=== PATIENT | male | born 1970 | race Caucasian/White ===

== ENCOUNTER 2024-08-04 23:51 | Inpatient (IN) | payer SELFPAY ==
[2024-08-05 01:03] VITALS: BMI 33.4
[2024-08-05] MEDS: traZODone HCL 50 MG TABLET PO ×2 (01:57→21:40)
[2024-08-05] MEDS: LORazepam 1 MG TABLET PO ×4 (01:57→16:06)
--- NOTE | 2024-08-05 04:47 | PC.ADMIT ---
Joe was admitted on a CV after being transferred form [facility] in [place] for ETOH abuse and suicidal ideation. He is alert and oriented X'4, calm and cooperative. he states that he has been drinking a 30 pack of beer daily for the past 13 months after a long period of sobriety. Joe denies suicidal ideation saying that it was just a stupid thing that I said when I was drunk I have no intention of hurting myself. I have too much to live for, I have friends, family and my son. He endorses depression and states that it is situational r/t him recently loosing his job and ongoing ETOH abuse. Joe was tearful when he learned he was being admitted to a psychiatric unit, stating My son was on a psych unit once, he tried to kill himself. Patient was placed on a CIWA for ETOH withdrawal and received 1mg of Ativan upon completion of admission assessment. he declined a flu shot completed all admission paperwork but requested to sign documents in the morning. Hospitalist consultation called in, addictions medicine consultation generated
[2024-08-05 08:00] VITALS: BP 195/115; PULSE 106; RESP 16; TEMP 36.4; O2SAT 99
[2024-08-05 08:27] VITALS: BP 195/115
[2024-08-05] MEDS: amLODIPine Besylate 10 MG TABLET PO (08:27)
[2024-08-05 10:20] LABS: Alanine Aminotransferase 90 U/L (0-40); Albumin Level 4.3 g/dL (3.5-5.0); Alkaline Phosphatase 54 U/L (39-117); Anion Gap 15 (12-20); Aspartate Amino Transferase 80 U/L (5-37); Bilirubin Total 1.1 mg/dL (0.0-1.0); Blood Urea Nitrogen 7 mg/dL (9-16); Calcium 9.5 mg/dL (8.4-10.2); Carbon Dioxide 26 mmol/L (22-29); Chloride 95 mmol/L (96-108); Creatinine Clr Calc Pharmacy 109.2; Estimated Glomerular Filt Rate > 60; Glucose Random 165 mg/dL (60-115); Sodium 132 mmol/L (135-145); Total Protein 8.5 g/dL (6.5-8.0)
--- NOTE | 2024-08-05 10:35 | P.HPPS_ITS ---
HPI Date of Service: 08/05/24 Chief Complaint: Unspec. anxiety disorder, unspec. alcohol related Sources of Information: patient interviewed, chart reviewed and crisis/core team assessment reviewed HPI Subjective Notes: [place] Warning and Conditional Voluntary Healthcare Proxy: No Guardianship: No Medical Problems Affecting Mental Status: No Narrative: 54 yo male, transfer from [place] requesting assist with anxiety mgt and alcohol detox. BAL 360, reports 30 [place] Light Beers daily. Drinking to manage anxiety. Reports sobriety for ~ 6 months in 2022. Lost his job in May 2023 and started using again. Pt reports he was able to stop in November 2022- my body felt terrible, I love life, I have kids, friends and I was able to do this. In 2023 when pt lost the job anxiety increased, financial stress increased and he returned to alcohol to forget his problems. Also reports he stopped his anxiety medication that worked very well and would like to re-start. Interested in Naltrexone as well. Past Psychiatric History: IP:First OP:None currently Trials: Escitalopram Medical Evaluation Reviewed: Hospitalist Flo Pending [facility] Medical History (Updated 08/05/24 @ 15:44 by Alisia Ochoa, LANDON) Anxiety Alcohol use disorder HTN (hypertension) Family History: alcoholism Substance History: alcohol-relapse May 2023 Trauma History: Affirms Diagnostics Vital Signs (24Hr): Vital Signs - 24 hr 08/05/24 08:00 08/05/24 08:27 Temperature 97.5 F Pulse Rate 106 H Respiratory Rate 16 Blood Pressure 195/115 H 195/115 H Pulse Oximetry 99 BMI result Body Mass Index 33.4 Labs 08/05/24 09:11 Labs: Laboratory Results - last 48 hr 08/05/24 09:11 Sodium 132 L Potassium 4.0 Chloride 95 L Carbon Dioxide 26 Anion Gap 15 BUN 7 L Creatinine 0.83 Estim Creat Clear Calc 109.2 Estimated GFR > 60 Random Glucose 165 H Calcium 9.5 Total Bilirubin 1.1 H AST 80 H ALT 90 H Alkaline Phosphatase 54 Total Protein 8.5 H Albumin 4.3 Meds/Allergies Meds Home Medications ?Medication ?Instructions ?Recorded ?Confirmed ?Type No Known Home Meds 08/05/24 08/05/24 History Allergies Allergies Allergy/AdvReac Type Severity Reaction Status Date / Time No Known Allergies Allergy Verified 02/14/25 00:59 Mental Status Exam Mental Status Exam Patient Appearance: Appropriate Patient Orientation: Person, Place, Time and Situation Level of Consciousness: Alert Patient Behavior: Talkative, Cooperative and Good Eye Contact Mood Description: Depressed Affect Description: Flat Patient Cognition Impaired: No Ability to Follow Directions: Good Speech Pattern: Spontaneous Speech Memory Description: Intact Hallucinations: None Thought Process: Rumination Thought Content: positive for Perseveration Depressive Symptoms: Increased Anxiety and Thoughts of /Suicide (denies) Judgement: Fair Assessment & Plan Assessment & Plan (1) Alcohol use disorder: Status: Acute Code(s): F10.90 - Alcohol use, unspecified, uncomplicated (2) Anxiety: Status: Acute Code(s): F41.9 - Anxiety disorder, unspecified (3) HTN (hypertension): Status: Acute Code(s): I10 - Essential (primary) hypertension Plan Alcohol Use Disorder, Anxiety Admit, CV, 15 minute checks Collateral contacts Diagnostics as needed Escitalopram 10 mg daily Naltrexone 25 mg daily MVI, Thiamine, Folic Acid, Mg Addiction Medicine Consult Repeat NA 08/06. Patient educated on: medication risk/benefits, substance abuse and therapeutic strategies Reason for continued inpatient stay Substantial Risk for: rapid decompensation and med/psych decompensation Statement Statement: I have reviewed the history and physical and performed a pertinent examination on my patient. No changes have occurred unless specified. If the History and Physical was not performed prior to admission, the Hospitalist's service will be consulted for completing the admission physical. Time Spent With Patient Time: Total time managing care of this patient today ____ minutes.
[2024-08-05] MEDS: Escitalopram Oxalate 10 MG TABLET PO (12:55)
--- NOTE | 2024-08-05 14:57 | P.CONHOSP_ITS ---
History of Present Illness Data of Consult Service Date: 08/05/24 Primary Care Provider: Unknown Physician HPI A 54-year-old male with a history of hypertension, currently managed with Norvasc, and alcohol dependency (consuming a 30-pack of beer daily and acknowledging a problem) was admitted for depression. He reportedly made a suicidal statement, although he states he was intoxicated at the time and has no intention of harming himself. 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 He currently denies suicidal ideation but reports feeling depressed lately and has no interest in doing things. He has no acute medical complaints such as chest pain, shortness of breath, dizziness, or others. His blood pressure was recorded as high this morning, but the nurse reports it was repeated and is now within normal limits, as documented in the EMR. Review of Systems 2 Review of Systems: Gen: no fever Resp: no sob, no cough CV: no chest, no BOX, no leg edema GI: No n/v, no abd pain Neuro: No confusion [facility] Medical History (Updated 08/05/24 @ 15:38 by Dennis Hayes MD) HTN (hypertension) Social History Household Members: Family Housing: Apartment Do you presently have visiting nurse or other home services: No Patient Tobacco Use Status: Never used Tobacco Use of substances other than those prescribed or required for medical reasons: No Have you been hit, kicked, punched, or otherwise hurt by someone within the past year? If so, by whom?: No Do you feel safe in your current relationship?: No Current Relationship Is there a partner from a previous relationship who is making you feel unsafe now?: No Are you made to feel afraid or neglected: No Advance Directives: No Advance Directives Information Provided: Yes Recently lost weight without trying: No Nutrition Risks: No Nutritional Risk Poor oral hygiene: No Meds Allergies Allergy/AdvReac Type Severity Reaction Status Date / Time No Known Allergies Allergy Verified 08/05/24 00:59 Active Medications: Current Medications Acetaminophen (Acetaminophen 325 Mg Tablet) 650 mg PO Q6H PRN PRN Reason: Headache/Pain, Scale 1-10 Al Hydroxide/Mg Hydroxide (Magnesium Hydrox/Alum Hydrox 30 Ml Oral.Susp) 30 ml PO Q6H PRN PRN Reason: Heartburn/Nausea Amlodipine Besylate (Amlodipine Besylate 10 Mg Tablet) 10 mg PO DAILY [facility]; Protocol Last Admin: 08/05/24 08:27 Dose: 10 mg Escitalopram Oxalate (Escitalopram Oxalate 10 Mg Tablet) 10 mg PO DAILY [facility] Last Admin: 08/05/24 12:55 Dose: 10 mg Folic Acid (Folic Acid 1 Mg Tablet) 1 mg PO DAILY [facility] Hydroxyzine HCl (Hydroxyzine Hcl 25 Mg Tablet) 25 mg PO Q6H PRN PRN Reason: mild anxiety Lorazepam (Lorazepam 1 Mg Tablet) 1 mg PO Q4H PRN PRN Reason: Alcohol Withdrawal Stop: 08/09/24 01:18 Last Admin: 08/05/24 12:21 Dose: 1 mg Lorazepam (Lorazepam 0.5 Mg Tablet) 0.5 mg PO Q4H PRN PRN Reason: Alcohol Withdrawal Lorazepam (Lorazepam 1 Mg Tablet) 2 mg PO Q4H PRN PRN Reason: Alcohol Withdrawal Magnesium Hydroxide (Milk Of Magnesia 30 Ml Oral.Susp) 30 ml PO DAILY PRN PRN Reason: Constipation Magnesium Oxide (Magnesium Oxide 400 Mg Tablet) 400 mg PO DAILY [facility] Multivitamins/Vitamin C (Multivitamin Tablet) 1 tab PO DAILY [facility] Naltrexone HCl (Naltrexone Hcl 50 Mg Tablet) 25 mg PO DAILY [facility] Nicotine Polacrilex (Nicotine Polacrilex 2 Mg Gum) 4 mg BUCCAL Q2H PRN PRN Reason: Nicotine Cravings Thiamine HCl (Thiamine Hcl 100 Mg Tablet) 100 mg PO DAILY [facility] Trazodone HCl (Trazodone Hcl 50 Mg Tablet) 50 mg PO BEDTIME MRX1 PRN PRN Reason: Insomnia Last Admin: 08/05/24 01:57 Dose: 50 mg Home Medications ?Medication ?Instructions ?Recorded ?Confirmed ?Last Taken ?Type No Known Home Meds 08/05/24 08/05/24 Unknown History Physical Exam 2 Vital Signs and Narrative: Vital Signs: Last Vital Signs Temp 97.5 F 08/05/24 08:00 Pulse 106 H 08/05/24 08:00 Resp 16 08/05/24 08:00 BP 195/115 H 08/05/24 08:27 Pulse Ox 99 08/05/24 08:00 BMI result Body Mass Index 33.4 General: AO X 3, no acute distress Resp: CTA bilateral CVS: S1,S2,RRR GI: +BS, NT, no distention Skin: No rash Neuro: motor grossly intact, CN 2 to 3 normal Psych: appropriate affect Results Labs 08/05/24 09:11 Labs: Laboratory Results - last 24 hr 08/05/24 09:11 Anion Gap 15 Estim Creat Clear Calc 109.2 Estimated GFR > 60 Random Glucose 165 H Calcium 9.5 Total Bilirubin 1.1 H AST 80 H ALT 90 H Alkaline Phosphatase 54 Total Protein 8.5 H Albumin 4.3 Assessment and Plan (1) HTN (hypertension): Status: Acute Plan 54 year old with HTN, alcohol dependency here with depression ? SI, BP high HTN--BP on high possible alcoholw Withdral (AW) contributing recheck BP and consider adding Lisinopril Continue CIWA to prevent AW FA, and thiamine supplement Mild Hyponatremia--likely chronic from chronic alcohol use Hyperglycemia 165, reactive, check A1C Depression ? SI, management per Psych Will Keep an eye on BP and make adjustement if needed
[2024-08-05 15:34] VITALS: BP 155/88
[2024-08-05] MEDS: lisinopriL 10 MG TABLET PO (15:34)
[2024-08-05 20:00] VITALS: BP 153/81; PULSE 96; TEMP 36.8; O2SAT 97
[2024-08-05 21:35] VITALS: BP 132/77; PULSE 92; TEMP 36.7; O2SAT 98
[2024-08-05] MEDS: LORazepam 0.5 MG TABLET PO (21:51)
[2024-08-05 22:00] VITALS: BP 132/83; PULSE 112; TEMP 36.7; O2SAT 98
[2024-08-06] MEDS: traZODone HCL 50 MG TABLET PO ×2 (02:41→21:18)
[2024-08-06] MEDS: hydrOXYzine HCL 25 MG TABLET PO ×2 (05:28→21:18)
[2024-08-06 08:00] VITALS: BP 136/72; PULSE 114; RESP 16; TEMP 36.6; O2SAT 98
[2024-08-06] MEDS: Folic Acid 1 MG TABLET PO (08:55)
[2024-08-06] MEDS: LORazepam 0.5 MG TABLET PO ×2 (08:55→17:36)
[2024-08-06 08:56] VITALS: BP 136/72
[2024-08-06] MEDS: lisinopriL 10 MG TABLET PO (08:56)
[2024-08-06] MEDS: Magnesium Oxide 400 MG TABLET PO (08:56)
[2024-08-06] MEDS: Escitalopram Oxalate 10 MG TABLET PO (08:56)
[2024-08-06] MEDS: Thiamine HCL 100 MG TABLET PO (08:56)
[2024-08-06] MEDS: Multivitamin TABLET 1 TAB PO (08:56)
[2024-08-06 08:57] VITALS: BP 136/72
[2024-08-06] MEDS: amLODIPine Besylate 10 MG TABLET PO (08:57)
[2024-08-06] MEDS: Naltrexone HCl 50 MG TABLET 25 MG PO (08:58)
--- NOTE | 2024-08-06 09:25 | P.PNPSI_ITS ---
Subjective Subjective Date of Service: 08/06/24 Reason For Visit: Unspec. anxiety disorder, unspec. alcohol related Subjective Notes: Conditional Voluntary Healthcare Proxy: No Guardianship: No Medical Problems Affecting Mental Status: No Interim History: Pt seen and reviewed with the team Reviewed detox symptoms and process of detox CIWA 8,0,6, HTN improving, pt reports feeling somewhat improved. Medication Compliance: Yes Side effects from medications: No Attending Groups: Intermittent Review of Systems Acute medical concerns: No Medical Review of Systems: unchanged Review of Systems Review of Systems Reports feeling some improvement Mental Status Exam Mental Status Exam Patient Appearance: Appropriate Patient Orientation: Person, Place, Time and Situation Level of Consciousness: Alert Patient Behavior: Talkative, Cooperative and Good Eye Contact Mood Description: Depressed Affect Description: Flat Patient Cognition Impaired: No Ability to Follow Directions: Good Speech Pattern: Spontaneous Speech Memory Description: Intact Hallucinations: None Thought Process: Rumination Thought Content: positive for Perseveration Depressive Symptoms: Increased Anxiety and Thoughts of /Suicide (denies) Judgement: Fair Diagnostics Vital Signs (24Hr): Vital Signs - 24 hr 08/05/24 15:34 08/05/24 20:00 08/05/24 21:35 Temperature 98.2 F 98.1 F Pulse Rate 96 92 Blood Pressure 155/88 H 153/81 H 132/77 Pulse Oximetry 97 98 Oxygen Delivery Method Room Air Room Air 08/05/24 22:00 08/06/24 08:56 08/06/24 08:57 Temperature 98.1 F Pulse Rate 112 H Blood Pressure 132/83 136/72 136/72 Pulse Oximetry 98 Oxygen Delivery Method Room Air BMI result Body Mass Index 33.4 Labs 08/06/24 08:54 Labs: Laboratory Results - last 48 hr 08/05/24 09:11 Sodium 132 L Potassium 4.0 Chloride 95 L Carbon Dioxide 26 Anion Gap 15 BUN 7 L Creatinine 0.83 Estim Creat Clear Calc 109.2 Estimated GFR > 60 Random Glucose 165 H Calcium 9.5 Total Bilirubin 1.1 H AST 80 H ALT 90 H Alkaline Phosphatase 54 Total Protein 8.5 H Albumin 4.3 Medications Medications Current Medications Acetaminophen (Acetaminophen 325 Mg Tablet) 650 mg PO Q6H PRN PRN Reason: Headache/Pain, Scale 1-10 Al Hydroxide/Mg Hydroxide (Magnesium Hydrox/Alum Hydrox 30 Ml Oral.Susp) 30 ml PO Q6H PRN PRN Reason: Heartburn/Nausea Amlodipine Besylate (Amlodipine Besylate 10 Mg Tablet) 10 mg PO DAILY [facility]; Protocol Last Admin: 08/06/24 08:57 Dose: 10 mg Escitalopram Oxalate (Escitalopram Oxalate 10 Mg Tablet) 10 mg PO DAILY [facility] Last Admin: 08/06/24 08:56 Dose: 10 mg Folic Acid (Folic Acid 1 Mg Tablet) 1 mg PO DAILY [facility] Last Admin: 08/06/24 08:55 Dose: 1 mg Hydroxyzine HCl (Hydroxyzine Hcl 25 Mg Tablet) 25 mg PO Q6H PRN PRN Reason: mild anxiety Last Admin: 08/06/24 05:28 Dose: 25 mg Lisinopril (Lisinopril 10 Mg Tablet) 10 mg PO DAILY [facility]; Protocol Last Admin: 08/06/24 08:56 Dose: 10 mg Lorazepam (Lorazepam 1 Mg Tablet) 1 mg PO Q4H PRN PRN Reason: Alcohol Withdrawal Stop: 08/09/24 01:18 Last Admin: 08/05/24 16:06 Dose: 1 mg Lorazepam (Lorazepam 0.5 Mg Tablet) 0.5 mg PO Q4H PRN PRN Reason: Alcohol Withdrawal Last Admin: 08/06/24 08:55 Dose: 0.5 mg Lorazepam (Lorazepam 1 Mg Tablet) 2 mg PO Q4H PRN PRN Reason: Alcohol Withdrawal Magnesium Hydroxide (Milk Of Magnesia 30 Ml Oral.Susp) 30 ml PO DAILY PRN PRN Reason: Constipation Magnesium Oxide (Magnesium Oxide 400 Mg Tablet) 400 mg PO DAILY [facility] Last Admin: 08/06/24 08:56 Dose: 400 mg Multivitamins/Vitamin C (Multivitamin Tablet) 1 tab PO DAILY [facility] Last Admin: 08/06/24 08:56 Dose: 1 tab Naltrexone HCl (Naltrexone Hcl 50 Mg Tablet) 25 mg PO DAILY [facility] Last Admin: 08/06/24 08:58 Dose: 25 mg Nicotine Polacrilex (Nicotine Polacrilex 2 Mg Gum) 4 mg BUCCAL Q2H PRN PRN Reason: Nicotine Cravings Thiamine HCl (Thiamine Hcl 100 Mg Tablet) 100 mg PO DAILY [facility] Last Admin: 08/06/24 08:56 Dose: 100 mg Trazodone HCl (Trazodone Hcl 50 Mg Tablet) 50 mg PO BEDTIME MRX1 PRN PRN Reason: Insomnia Last Admin: 08/06/24 02:41 Dose: 50 mg Allergies Allergies Allergy/AdvReac Type Severity Reaction Status Date / Time No Known Allergies Allergy Verified 08/05/24 00:59 Assessment & Plan Assessment & Plan (1) Alcohol use disorder: Status: Acute Code(s): F10.90 - Alcohol use, unspecified, uncomplicated (2) Anxiety: Status: Acute Code(s): F41.9 - Anxiety disorder, unspecified (3) HTN (hypertension): Status: Acute Code(s): I10 - Essential (primary) hypertension Plan Alcohol Use Disorder, Anxiety Admit, CV, 15 minute checks Collateral contacts Diagnostics as needed Escitalopram 10 mg daily Naltrexone 25 mg daily MVI, Thiamine, Folic Acid, Mg Addiction Medicine Consult Repeat NA 08/06. 08/06: Sodium 135 Continue current plan Reason for continued inpatient stay Substantial Risk for: rapid decompensation and med/psych decompensation Time Spent With Patient Time: Total time managing care of this patient today ____ minutes.
[2024-08-06 09:36] LABS: Cholesterol 163 mg/dL (<200); HDL Cholesterol 85 mg/dL (>40); LDL Cholesterol Calculated 67 mg/dL (<100); Sodium 135 mmol/L (135-145); Triglycerides 57 mg/dL (<150)
[2024-08-06 20:00] VITALS: BP 148/73; PULSE 93; RESP 18; TEMP 36.4; O2SAT 99
[2024-08-07 00:52] VITALS: BP 167/99; PULSE 110; TEMP 36.5; O2SAT 98
[2024-08-07 08:00] VITALS: BP 141/78; PULSE 111; RESP 20; TEMP 36.5; O2SAT 98
[2024-08-07] MEDS: Multivitamin TABLET 1 TAB PO (08:48)
[2024-08-07] MEDS: Magnesium Oxide 400 MG TABLET PO (08:48)
[2024-08-07] MEDS: amLODIPine Besylate 10 MG TABLET PO (08:48)
[2024-08-07] MEDS: Escitalopram Oxalate 10 MG TABLET PO (08:48)
[2024-08-07] MEDS: hydrOXYzine HCL 25 MG TABLET PO ×3 (08:49→21:30)
[2024-08-07] MEDS: Thiamine HCL 100 MG TABLET PO (08:49)
[2024-08-07] MEDS: Folic Acid 1 MG TABLET PO (08:49)
[2024-08-07] MEDS: Naltrexone HCl 50 MG TABLET 25 MG PO (08:49)
[2024-08-07] MEDS: LORazepam 0.5 MG TABLET PO (08:57)
[2024-08-07] MEDS: lisinopriL 10 MG TABLET PO (08:58)
--- NOTE | 2024-08-07 09:35 | HO.PSYCHPN ---
Subjective Subjective Date of Service: 08/07/24 Reason For Visit: Unspec. anxiety disorder, unspec. alcohol related Subjective Notes: Conditional Voluntary Healthcare Proxy: No Guardianship: No Medical Problems Affecting Mental Status: No Interim History: Pt feeling improved Anxious-team suggested clonidine which he agreed with Avoiding chaotic loud milieu Some depressive sx CIWA max at 7 today Medication Compliance: Yes Side effects from medications: No Attending Groups: Intermittent Review of Systems Acute medical concerns: No Review of Systems Review of Systems anxiety Mental Status Exam Mental Status Exam Patient Appearance: Appropriate Patient Orientation: Person, Place, Time and Situation Level of Consciousness: Alert Patient Behavior: Talkative, Cooperative and Good Eye Contact Mood Description: Depressed Affect Description: Flat Patient Cognition Impaired: No Ability to Follow Directions: Good Speech Pattern: Spontaneous Speech Memory Description: Intact Hallucinations: None Thought Process: Rumination Thought Content: positive for Perseveration Depressive Symptoms: Increased Anxiety and Thoughts of /Suicide (denies) Judgement: Fair Diagnostics Vital Signs (24Hr): Vital Signs - 24 hr 08/06/24 20:00 08/06/24 20:00 08/07/24 00:52 Temperature 97.5 F 97.5 F 97.7 F Pulse Rate 93 93 110 H Respiratory Rate 18 Blood Pressure 148/73 H 148/73 H 167/99 H Pulse Oximetry 99 99 98 Oxygen Delivery Method Room Air Room Air Room Air 08/07/24 08:00 Temperature 97.7 F Pulse Rate 111 H Respiratory Rate 20 Blood Pressure 141/78 H Pulse Oximetry 98 Oxygen Delivery Method Room Air BMI result Body Mass Index 33.4 Labs 08/06/24 08:54 Labs: Laboratory Results - last 48 hr 08/05/24 08/06/24 09:11 08:54 Sodium 132 L 135 Potassium 4.0 Chloride 95 L Carbon Dioxide 26 Anion Gap 15 BUN 7 L Creatinine 0.83 Estim Creat Clear Calc 109.2 Estimated GFR > 60 Random Glucose 165 H Calcium 9.5 Total Bilirubin 1.1 H AST 80 H ALT 90 H Alkaline Phosphatase 54 Total Protein 8.5 H Albumin 4.3 Triglycerides 57 Cholesterol 163 LDL Cholesterol, Calc 67 HDL Cholesterol 85 Medications Medications Current Medications Acetaminophen (Acetaminophen 325 Mg Tablet) 650 mg PO Q6H PRN PRN Reason: Headache/Pain, Scale 1-10 Al Hydroxide/Mg Hydroxide (Magnesium Hydrox/Alum Hydrox 30 Ml Oral.Susp) 30 ml PO Q6H PRN PRN Reason: Heartburn/Nausea Amlodipine Besylate (Amlodipine Besylate 10 Mg Tablet) 10 mg PO DAILY [facility]; Protocol Last Admin: 08/07/24 08:48 Dose: 10 mg Escitalopram Oxalate (Escitalopram Oxalate 10 Mg Tablet) 10 mg PO DAILY [facility] Last Admin: 08/07/24 08:48 Dose: 10 mg Folic Acid (Folic Acid 1 Mg Tablet) 1 mg PO DAILY [facility] Last Admin: 08/07/24 08:49 Dose: 1 mg Hydroxyzine HCl (Hydroxyzine Hcl 25 Mg Tablet) 25 mg PO Q6H PRN PRN Reason: mild anxiety Last Admin: 08/07/24 08:49 Dose: 25 mg Lisinopril (Lisinopril 10 Mg Tablet) 10 mg PO DAILY [facility]; Protocol Last Admin: 08/07/24 08:58 Dose: 10 mg Lorazepam (Lorazepam 1 Mg Tablet) 1 mg PO Q4H PRN PRN Reason: Alcohol Withdrawal Stop: 08/09/24 01:18 Last Admin: 08/05/24 16:06 Dose: 1 mg Lorazepam (Lorazepam 0.5 Mg Tablet) 0.5 mg PO Q4H PRN PRN Reason: Alcohol Withdrawal Last Admin: 08/07/24 08:57 Dose: 0.5 mg Lorazepam (Lorazepam 1 Mg Tablet) 2 mg PO Q4H PRN PRN Reason: Alcohol Withdrawal Magnesium Hydroxide (Milk Of Magnesia 30 Ml Oral.Susp) 30 ml PO DAILY PRN PRN Reason: Constipation Magnesium Oxide (Magnesium Oxide 400 Mg Tablet) 400 mg PO DAILY [facility] Last Admin: 08/07/24 08:48 Dose: 400 mg Multivitamins/Vitamin C (Multivitamin Tablet) 1 tab PO DAILY [facility] Last Admin: 08/07/24 08:48 Dose: 1 tab Naltrexone HCl (Naltrexone Hcl 50 Mg Tablet) 25 mg PO DAILY [facility] Last Admin: 08/07/24 08:49 Dose: 25 mg Nicotine Polacrilex (Nicotine Polacrilex 2 Mg Gum) 4 mg BUCCAL Q2H PRN PRN Reason: Nicotine Cravings Polyethylene Glycol (Polyethylene Glycol 3350 17 Gm Powd.Pack) 17 gm PO DAILY [facility] Thiamine HCl (Thiamine Hcl 100 Mg Tablet) 100 mg PO DAILY [facility] Last Admin: 08/07/24 08:49 Dose: 100 mg Trazodone HCl (Trazodone Hcl 50 Mg Tablet) 50 mg PO BEDTIME MRX1 PRN PRN Reason: Insomnia Last Admin: 08/06/24 21:18 Dose: 50 mg Allergies Allergies Allergy/AdvReac Type Severity Reaction Status Date / Time No Known Allergies Allergy Verified 08/05/24 00:59 Assessment & Plan Assessment & Plan (1) Alcohol use disorder: Status: Acute Code(s): F10.90 - Alcohol use, unspecified, uncomplicated (2) Anxiety: Status: Acute Code(s): F41.9 - Anxiety disorder, unspecified (3) HTN (hypertension): Status: Acute Code(s): I10 - Essential (primary) hypertension Plan Alcohol Use Disorder, Anxiety Admit, CV, 15 minute checks Collateral contacts Diagnostics as needed Escitalopram 10 mg daily Naltrexone 25 mg daily MVI, Thiamine, Folic Acid, Mg Addiction Medicine Consult Repeat NA 08/06. 08/06: Sodium 135 Continue current plan 08/07: Continue tx Reason for continued inpatient stay Substantial Risk for: rapid decompensation Time Spent With Patient Time: Total time managing care of this patient today ____ minutes.
[2024-08-07 12:01] VITALS: BP 137/72; PULSE 94; RESP 18; TEMP 36.4
[2024-08-07 16:45] VITALS: BP 144/79; PULSE 95; RESP 18; TEMP 36.6; O2SAT 98
[2024-08-07 19:34] VITALS: BP 145/75; PULSE 82; TEMP 36.4; O2SAT 97
[2024-08-07] MEDS: traZODone HCL 50 MG TABLET PO (21:30)
[2024-08-08] MEDS: hydrOXYzine HCL 25 MG TABLET PO (06:34)
[2024-08-08 08:00] VITALS: BP 146/78; PULSE 104; RESP 20; TEMP 36.6; O2SAT 96
--- NOTE | 2024-08-08 08:25 | P.PNPSI_ITS ---
Subjective Subjective Date of Service: 08/08/24 Reason For Visit: Unspec. anxiety disorder, unspec. alcohol related Subjective Notes: Conditional Voluntary Healthcare Proxy: No Guardianship: No Medical Problems Affecting Mental Status: No Interim History: LARY stopped Looking to discharge Tells team he is looking forward to living again Does report he believes one of his teeth cracked and will need to follow up with his dental team. Reports feeling improved overall. Review of Systems Review of Systems Yes all other systems are reviewed and are negative Mental Status Exam Mental Status Exam Patient Appearance: Appropriate Patient Orientation: Person, Place, Time and Situation Level of Consciousness: Alert Patient Behavior: Talkative, Cooperative and Good Eye Contact Mood Description: Constricted Affect Description: Flat Patient Cognition Impaired: No Ability to Follow Directions: Good Speech Pattern: Spontaneous Speech Memory Description: Intact Hallucinations: None Thought Process: Rumination Thought Content: positive for Perseveration Depressive Symptoms: Increased Anxiety and Thoughts of /Suicide (denies) Judgement: Fair Diagnostics Vital Signs (24Hr): Vital Signs - 24 hr 08/07/24 12:01 08/07/24 16:45 08/07/24 19:34 Temperature 97.5 F 97.8 F 97.6 F Pulse Rate 94 95 82 Respiratory Rate 18 18 Blood Pressure 137/72 144/79 H 145/75 H Pulse Oximetry 98 97 Oxygen Delivery Method Room Air Room Air 08/08/24 08:00 Temperature 97.8 F Pulse Rate 104 H Respiratory Rate 20 Blood Pressure 146/78 H Pulse Oximetry 96 Oxygen Delivery Method Room Air BMI result Body Mass Index 33.4 Labs 08/06/24 08:54 Labs: Laboratory Results - last 48 hr 08/06/24 08:54 Sodium 135 Triglycerides 57 Cholesterol 163 LDL Cholesterol, Calc 67 HDL Cholesterol 85 Medications Medications Current Medications Acetaminophen (Acetaminophen 325 Mg Tablet) 650 mg PO Q6H PRN PRN Reason: Headache/Pain, Scale 1-10 Al Hydroxide/Mg Hydroxide (Magnesium Hydrox/Alum Hydrox 30 Ml Oral.Susp) 30 ml PO Q6H PRN PRN Reason: Heartburn/Nausea Amlodipine Besylate (Amlodipine Besylate 10 Mg Tablet) 10 mg PO DAILY [facility]; Protocol Last Admin: 08/07/24 08:48 Dose: 10 mg Clonidine HCl (Clonidine Hcl 0.1 Mg Tablet) 0.1 mg PO BID PRN; Protocol PRN Reason: high anxiety Escitalopram Oxalate (Escitalopram Oxalate 10 Mg Tablet) 10 mg PO DAILY [facility] Last Admin: 08/07/24 08:48 Dose: 10 mg Folic Acid (Folic Acid 1 Mg Tablet) 1 mg PO DAILY [facility] Last Admin: 08/07/24 08:49 Dose: 1 mg Hydroxyzine HCl (Hydroxyzine Hcl 25 Mg Tablet) 25 mg PO Q6H PRN PRN Reason: mild anxiety Last Admin: 08/08/24 06:34 Dose: 25 mg Lisinopril (Lisinopril 10 Mg Tablet) 10 mg PO DAILY [facility]; Protocol Last Admin: 08/07/24 08:58 Dose: 10 mg Lorazepam (Lorazepam 1 Mg Tablet) 1 mg PO Q4H PRN PRN Reason: Alcohol Withdrawal Stop: 08/09/24 01:18 Last Admin: 08/05/24 16:06 Dose: 1 mg Lorazepam (Lorazepam 0.5 Mg Tablet) 0.5 mg PO Q4H PRN PRN Reason: Alcohol Withdrawal Last Admin: 08/07/24 08:57 Dose: 0.5 mg Lorazepam (Lorazepam 1 Mg Tablet) 2 mg PO Q4H PRN PRN Reason: Alcohol Withdrawal Magnesium Hydroxide (Milk Of Magnesia 30 Ml Oral.Susp) 30 ml PO DAILY PRN PRN Reason: Constipation Magnesium Oxide (Magnesium Oxide 400 Mg Tablet) 400 mg PO DAILY [facility] Last Admin: 08/07/24 08:48 Dose: 400 mg Multivitamins/Vitamin C (Multivitamin Tablet) 1 tab PO DAILY [facility] Last Admin: 08/07/24 08:48 Dose: 1 tab Naltrexone HCl (Naltrexone Hcl 50 Mg Tablet) 25 mg PO DAILY [facility] Last Admin: 08/07/24 08:49 Dose: 25 mg Nicotine Polacrilex (Nicotine Polacrilex 2 Mg Gum) 4 mg BUCCAL Q2H PRN PRN Reason: Nicotine Cravings Polyethylene Glycol (Polyethylene Glycol 3350 17 Gm Powd.Pack) 17 gm PO DAILY [facility] Thiamine HCl (Thiamine Hcl 100 Mg Tablet) 100 mg PO DAILY [facility] Last Admin: 08/07/24 08:49 Dose: 100 mg Trazodone HCl (Trazodone Hcl 50 Mg Tablet) 50 mg PO BEDTIME MRX1 PRN PRN Reason: Insomnia Last Admin: 08/07/24 21:30 Dose: 50 mg Allergies Allergies Allergy/AdvReac Type Severity Reaction Status Date / Time No Known Allergies Allergy Verified 08/05/24 00:59 Assessment & Plan Assessment & Plan (1) Alcohol use disorder: Status: Acute Code(s): F10.90 - Alcohol use, unspecified, uncomplicated (2) Anxiety: Status: Acute Code(s): F41.9 - Anxiety disorder, unspecified (3) HTN (hypertension): Status: Acute Code(s): I10 - Essential (primary) hypertension Plan Alcohol Use Disorder, Anxiety Admit, CV, 15 minute checks Collateral contacts Diagnostics as needed Escitalopram 10 mg daily Naltrexone 25 mg daily MVI, Thiamine, Folic Acid, Mg Addiction Medicine Consult Repeat NA 08/06. 08/06: Sodium 135 Continue current plan 08/08: Continue tx Reason for continued inpatient stay Substantial Risk for: rapid decompensation Time Spent With Patient Time: Total time managing care of this patient today ____ minutes.
[2024-08-08] MEDS: lisinopriL 10 MG TABLET PO (08:40)
[2024-08-08] MEDS: Magnesium Oxide 400 MG TABLET PO (08:40)
[2024-08-08] MEDS: amLODIPine Besylate 10 MG TABLET PO (08:40)
[2024-08-08] MEDS: Multivitamin TABLET 1 TAB PO (08:40)
[2024-08-08] MEDS: Naltrexone HCl 50 MG TABLET 25 MG PO (08:40)
[2024-08-08] MEDS: Thiamine HCL 100 MG TABLET PO (08:40)
[2024-08-08] MEDS: Folic Acid 1 MG TABLET PO (08:40)
[2024-08-08] MEDS: Escitalopram Oxalate 10 MG TABLET PO (08:40)
[2024-08-08 11:33] VITALS: BP 146/77
[2024-08-08] MEDS: cloNIDine HCL 0.1 MG TABLET PO ×2 (11:33→21:42)
[2024-08-08 20:00] VITALS: BP 145/75; PULSE 96; TEMP 36.6; O2SAT 96
[2024-08-08 21:42] VITALS: BP 145/75
[2024-08-08] MEDS: traZODone HCL 50 MG TABLET PO ×2 (21:42→22:48)
[2024-08-09 08:00] VITALS: BP 114/66; PULSE 110; RESP 18; TEMP 36.4; O2SAT 98
[2024-08-09] MEDS: Naltrexone HCl 50 MG TABLET 25 MG PO (08:19)
[2024-08-09] MEDS: Folic Acid 1 MG TABLET PO (08:19)
[2024-08-09] MEDS: lisinopriL 10 MG TABLET PO (08:19)
[2024-08-09] MEDS: Thiamine HCL 100 MG TABLET PO (08:19)
[2024-08-09] MEDS: Magnesium Oxide 400 MG TABLET PO (08:19)
[2024-08-09] MEDS: amLODIPine Besylate 10 MG TABLET PO (08:19)
[2024-08-09] MEDS: Multivitamin TABLET 1 TAB PO (08:19)
[2024-08-09] MEDS: Escitalopram Oxalate 10 MG TABLET PO (08:20)
--- NOTE | 2024-08-09 09:36 | HO.PSYCHPN ---
Subjective Subjective Date of Service: 08/09/24 Reason For Visit: Unspec. anxiety disorder, unspec. alcohol related Interim History: Met w/ patient; discussed with team; reviewed chart pt reports he's doing fantastic and that it's the best he's felt in a long time. He says i'm in a good place [emotionally] right now... Pt shared aftercare plans for sobriety which involve going to meetings with his son. Pt looking forward to planned discharge tomorrow. Mental Status Exam Mental Status Exam Narrative: Pt is alert and oriented; behavior is cooperative, friendly and calm; patient is not in distress; dressed in casual attire with adequate hygiene; mood is described as fantastic and affect congruent; eye contact appropriate; Speech is normal rate, volume and prosody and not pressured; no psychomotor agitation/retardation present; thought process is organized and goal directed; Thought content is on tx; otherwise pertinent to relevant topics and without any delusional content, paranoid ideations or grandiosity; denies any SI/HI. There is no evidence of perceptual disturbance. Patients insight and judgment appear intact. Diagnostics Vital Signs (24Hr): Vital Signs - 24 hr 08/08/24 11:33 08/08/24 20:00 08/08/24 21:42 Temperature 97.8 F Pulse Rate 96 Respiratory Rate Blood Pressure 146/77 H 145/75 H 145/75 H Pulse Oximetry 96 Oxygen Delivery Method 08/09/24 08:00 Temperature 97.6 F Pulse Rate 110 H Respiratory Rate 18 Blood Pressure 114/66 Pulse Oximetry 98 Oxygen Delivery Method Room Air BMI result Body Mass Index 33.4 Labs 08/06/24 08:54 Medications Medications Current Medications Acetaminophen (Acetaminophen 325 Mg Tablet) 650 mg PO Q6H PRN PRN Reason: Headache/Pain, Scale 1-10 Al Hydroxide/Mg Hydroxide (Magnesium Hydrox/Alum Hydrox 30 Ml Oral.Susp) 30 ml PO Q6H PRN PRN Reason: Heartburn/Nausea Amlodipine Besylate (Amlodipine Besylate 10 Mg Tablet) 10 mg PO DAILY [place]; Protocol Last Admin: 08/09/24 08:19 Dose: 10 mg Clonidine HCl (Clonidine Hcl 0.1 Mg Tablet) 0.1 mg PO BID PRN; Protocol PRN Reason: high anxiety Last Admin: 08/08/24 21:42 Dose: 0.1 mg Escitalopram Oxalate (Escitalopram Oxalate 10 Mg Tablet) 10 mg PO DAILY [facility] Last Admin: 08/09/24 08:20 Dose: 10 mg Folic Acid (Folic Acid 1 Mg Tablet) 1 mg PO DAILY [facility] Last Admin: 08/09/24 08:19 Dose: 1 mg Hydroxyzine HCl (Hydroxyzine Hcl 25 Mg Tablet) 25 mg PO Q6H PRN PRN Reason: mild anxiety Last Admin: 08/08/24 06:34 Dose: 25 mg Lisinopril (Lisinopril 10 Mg Tablet) 10 mg PO DAILY [facility]; Protocol Last Admin: 08/09/24 08:19 Dose: 10 mg Magnesium Hydroxide (Milk Of Magnesia 30 Ml Oral.Susp) 30 ml PO DAILY PRN PRN Reason: Constipation Magnesium Oxide (Magnesium Oxide 400 Mg Tablet) 400 mg PO DAILY [facility] [place] Last Admin: 08/09/24 08:19 Dose: 400 mg Multivitamins/Vitamin C (Multivitamin Tablet) 1 tab PO DAILY [facility] [place] Last Admin: 08/09/24 08:19 Dose: 1 tab Naltrexone HCl (Naltrexone Hcl 50 Mg Tablet) 25 mg PO DAILY [facility] [place] Last Admin: 08/09/24 08:19 Dose: 25 mg Nicotine Polacrilex (Nicotine Polacrilex 2 Mg Gum) 4 mg BUCCAL Q2H PRN PRN Reason: Nicotine Cravings Polyethylene Glycol (Polyethylene Glycol 3350 17 Gm Powd.Pack) 17 gm PO DAILY [facility] [place] Last Admin: 08/09/24 08:41 Dose: Not Given Thiamine HCl (Thiamine Hcl 100 Mg Tablet) 100 mg PO DAILY [facility] Last Admin: 08/09/24 08:19 Dose: 100 mg Trazodone HCl (Trazodone Hcl 50 Mg Tablet) 50 mg PO BEDTIME MRX1 PRN PRN Reason: Insomnia Last Admin: 08/08/24 22:48 Dose: 50 mg Allergies Allergies Allergy/AdvReac Type Severity Reaction Status Date / Time No Known Allergies Allergy Verified 08/05/24 00:59 Assessment & Plan Assessment & Plan (1) Alcohol use disorder: Status: Acute Code(s): F10.90 - Alcohol use, unspecified, uncomplicated (2) Anxiety: Status: Acute Code(s): F41.9 - Anxiety disorder, unspecified (3) HTN (hypertension): Status: Acute Code(s): I10 - Essential (primary) hypertension Plan Alcohol Use Disorder, Anxiety Admit, CV, 15 minute checks Collateral contacts Diagnostics as needed Escitalopram 10 mg daily Naltrexone 25 mg daily MVI, Thiamine, Folic Acid, Mg Addiction Medicine Consult Repeat NA 08/06. 08/06: Sodium 135 Continue current plan 08/08: Continue tx 08/09 continue tx plan and planned discharge tomorrow Patient educated on: diagnosis, medication risk/benefits and substance abuse Informed Consent: understands Reason for continued inpatient stay Substantial Risk for: stable for discharge Time Spent With Patient Time: Total time managing care of this patient today ____ minutes.
[2024-08-09] MEDS: hydrOXYzine HCL 25 MG TABLET PO ×2 (10:09→22:07)
[2024-08-09 19:51] VITALS: BP 128/71; PULSE 81; RESP 18; TEMP 36.4; O2SAT 98
[2024-08-09] MEDS: traZODone HCL 50 MG TABLET PO (23:00)
[2024-08-10 07:56] VITALS: BP 132/83; PULSE 92; RESP 18; TEMP 36.8; O2SAT 99
[2024-08-10] MEDS: lisinopriL 10 MG TABLET PO (08:29)
[2024-08-10] MEDS: Folic Acid 1 MG TABLET PO (08:29)
[2024-08-10] MEDS: Escitalopram Oxalate 10 MG TABLET PO (08:29)
[2024-08-10] MEDS: Magnesium Oxide 400 MG TABLET PO (08:29)
[2024-08-10] MEDS: Multivitamin TABLET 1 TAB PO (08:29)
[2024-08-10] MEDS: Thiamine HCL 100 MG TABLET PO (08:29)
[2024-08-10] MEDS: amLODIPine Besylate 10 MG TABLET PO (08:30)
[2024-08-10] MEDS: Naltrexone HCl 50 MG TABLET 25 MG PO (08:30)
--- NOTE | 2024-08-18 15:47 | PM.PSYDC ---
DS: Providers Provider Date of Service: 08/10/24 Date of admission: 08/04/24 23:51 Date of discharge: 08/10/24 Primary care physician: Unknown Physician Admitting clinician: Alisia Ochoa Attending physician on admission: Jonathan Coleman Consults: 08/05/24 01:16 Consult to Hospitalist Routine Comment: Consulting Provider: [facility] Hospitalists Reason For Exam: Direct admission Attending physician on discharge: Jonathan Coleman Discharging clinician: Alisia Ochoa DS: Diagnosis Discharge Diagnosis (1) Alcohol use disorder: Status: Acute (2) Anxiety: Status: Acute (3) HTN (hypertension): Status: Acute DS: Medications Discharge Medications Home Medications: Previous Rx's ?Medication ?Instructions ?Recorded amlodipine 10 mg tablet 10 mg PO DAILY #3 tabs 08/10/24 clonidine HCl 0.1 mg tablet 0.1 mg PO BID PRN high anxiety #3 08/10/24 tabs escitalopram oxalate 10 mg tablet 10 mg PO DAILY #30 tabs 08/10/24 folic acid 1 mg tablet 1 mg PO DAILY #30 tabs 08/10/24 hydroxyzine HCl 25 mg tablet 25 mg PO Q6H PRN mild anxiety #15 08/10/24 tabs lisinopril 10 mg tablet 10 mg PO DAILY #3 tabs 08/10/24 magnesium oxide 400 mg (241.3 mg 400 mg PO DAILY #30 tabs 08/10/24 magnesium) tablet multivitamin (Daily-Viky tablet) 1 tab PO DAILY #30 tabs 08/10/24 naltrexone 50 mg tablet 25 mg (1/2 x 50 mg) PO DAILY #15 08/10/24 tabs thiamine mononitrate (vit B1) 100 100 mg PO DAILY #30 tabs 08/10/24 mg tablet trazodone 50 mg tablet 50 mg PO BEDTIME MRX1 PRN Insomnia 08/10/24 #60 tabs Mental Status Exam Mental Status Exam Patient Appearance: Appropriate Patient Orientation: Person, Place, Time and Situation Level of Consciousness: Alert Patient Behavior: Talkative, Cooperative and Good Eye Contact Mood Description: Constricted Affect Description: Flat Patient Cognition Impaired: No Ability to Follow Directions: Good Speech Pattern: Spontaneous Speech Memory Description: Intact Hallucinations: None Thought Process: Rumination Thought Content: positive for Perseveration Depressive Symptoms: Increased Anxiety and Thoughts of /Suicide (denies) Judgement: Fair DS: Summary Hospital Course Hospital Course: Admission to adult psychiatry for exacerbation of alcohol use disorder, anxiety. Medications were evaluated and titrated Pt was offered full milieu therapy during his admission. Time Spent with Patient Time attestation: Total time managing care of this patient today ____ minutes. Discharge Plan Discharge Anticipated Discharge Date/Time: 08/10/24 12:00 Patient Disposition: Home, Self-Care Discharge Diagnosis: Alcohol Use Disorder Anxiety HTN [facility] [Other] - 1 Week (Patient may self present for diagnostic evaluation to connect with outpatient mental health (psychiatry and therapy services. Hours for evaluation Thursday-Thursday 10:00am to 12:00pm ) [facility] [Other] - 1 Week (Patient may self present for diagnostic evaluation to establish with psychiatry and therapy providers. Hours of evaluation, Thursday-Thursday 8:00 am- 8:00 pm, Thursday 9:00 am-5:00 pm.) Dakotah Miles MD [Physician] - 1 Week (Office will call pt with follow up appointment .) Discharge Medications: New multivitamin [Daily-Viky] Tablet 1 tab PO DAILY Qty: 30 0RF clonidine HCl 0.1 mg Tablet 0.1 mg PO BID PRN (Reason: high anxiety) Qty: 3 0RF Protocol: Hold for SBP< HOLD for SBP < : 90 trazodone 50 mg Tablet 50 mg PO BEDTIME MRX1 PRN (Reason: Insomnia) Qty: 60 0RF naltrexone 50 mg Tablet 25 mg PO DAILY Qty: 15 0RF magnesium oxide 400 mg (241.3 mg magnesium) Tablet 400 mg PO DAILY Qty: 30 0RF amlodipine 10 mg Tablet 10 mg PO DAILY Qty: 3 0RF Protocol: Hold for SBP< HOLD for SBP < : 90 lisinopril 10 mg Tablet 10 mg PO DAILY Qty: 3 0RF Protocol: Hold for SBP< HOLD for SBP < : 90 folic acid 1 mg Tablet 1 mg PO DAILY Qty: 30 0RF hydroxyzine HCl 25 mg Tablet 25 mg PO Q6H PRN (Reason: mild anxiety) Qty: 15 0RF escitalopram oxalate 10 mg Tablet 10 mg PO DAILY Qty: 30 0RF thiamine mononitrate (vit B1) 100 mg Tablet 100 mg PO DAILY Qty: 30 0RF Discharge Orders: Discharge Order (Routine); Ordered 08/10/24 Ordered By: Alisia Ochoa Diet: Advance to usual diet Activity on Discharge: As tolerated Stand Alone Forms: Patient Portal Discharge page, Community Support Print Language: [place] Care Plan Goals: Abstinence from alcohol Mood and Behavioral Stabilization Health Concerns: Abstinence from alcohol Mood and Behavioral Stabilization Plan of Treatment: Attend scheduled appointments Take medications as directed Call/Return if needed Assessment: Scheduled discharge. Pt is in agreement with his plan of care Discharge Date/Time: 08/10/24 11:37
== END 2024-08-10 11:37 | disposition home or self-care (01) | DRG 880 ==
PROVIDERS: Clinical Nurse Specialist Psychiatric/Mental Health, Adult; Psychiatry & Neurology Psychiatry; Admitting Provider Psychiatry & Neurology Psychiatry; Visit Provider Psychiatry & Neurology Psychiatry
DX: F41.9 Anxiety disorder, unspecified (principal); R45.851 Suicidal ideations; I10 Essential (primary) hypertension; F32.A Depression, unspecified; F10.20 Alcohol dependence, uncomplicated; Z79.899 Other long term (current) drug therapy
CPT/HCPCS: 36415; 80053; 80061; 84295

== ENCOUNTER → 2024-08-04 23:51 | Outpatient (BNV) | payer SELFPAY | PROVIDERS: Admitting Provider Psychiatry & Neurology Psychiatry; Visit Provider Clinical Nurse Specialist Psychiatric/Mental Health, Adult | DX: F10.90 Alcohol use, unspecified, uncomplicated (principal); F41.9 Anxiety disorder, unspecified; I10 Essential (primary) hypertension | CPT/HCPCS: 99222; 99231; 99232 ==

== ENCOUNTER → 2024-08-04 23:51 | Outpatient (BNV) | payer SELFPAY | PROVIDERS: Admitting Provider Psychiatry & Neurology Psychiatry; Visit Provider Internal Medicine | DX: I10 Essential (primary) hypertension (principal) | CPT/HCPCS: 99232 ==